=== PATIENT | male | born 1990 | race Caucasian/White ===

== ENCOUNTER 2017-08-23 22:12 | Emergency (ER) | payer SELFPAY ==
[~2017-08-23] VITALS: Ht 182.9 cm; Wt 99.6 kg
[2017-08-23 22:17] VITALS: TEMP 37; Ht 182.9 cm; Wt 99.6 kg
[2017-08-23 22:28] VITALS: O2SAT 93
[2017-08-23 23:51] VITALS: BP 123/86; PULSE 119; O2SAT 94
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
== END 2017-08-24 00:01 | disposition home or self-care (01) ==
LOC: C.EDB 22:15
DX: F10.929 Alcohol use, unspecified with intoxication, unspecified (principal)